=== PATIENT | male | born 1955 | race Caucasian/White ===

== ENCOUNTER → 2018-11-17 | Outpatient (CLI) | payer OTHER ==
[~2018-11-17] MED LIST: ADULT LOW DOSE81 MG PO; BENTYL10 MG PO; LIPITOR20 MG PO; OMEPRAZOLE 20 M20 MG PO; PROTONIX40 M2 PO; VITAMIN B-12100 MC1 PO; WELLBUTRIN SR150 MG PO; ZOFRAN ODT4 MG PO
== END ==
LOC: CAT 14:19
DX: Z13.6 Encounter for screening for cardiovascular disorders (principal); E78.00 Pure hypercholesterolemia, unspecified; Z72.89 Other problems related to lifestyle

== ENCOUNTER 2019-02-16 21:58 | Emergency (ER) | payer BC, OTHER ==
[~2019-02-16] VITALS: Ht 182.9 cm; Wt 95.3 kg
[2019-02-16 22:50] LABS: ANION GAP 12 mmol/L (7-16); BUN 18 mg/dL (7-18); CALCIUM 9.4 mg/dL (8.5-10.1); CHLORIDE 102 mmol/L (98-107); CO2 26 mmol/L (21-32); CREATININE 1.2 mg/dL (0.7-1.3); GLUCOSE 130 mg/dL (74-106); POTASSIUM 4.1 mmol/L (3.5-5.1); SODIUM 140 mmol/L (136-145)
[2019-02-16 22:53] LABS: ABSOLUTE NEUTROPHILS 8.6 thou/uL (1.4-8.2); BASOPHILS 0.5 % (0.0-2.0); EOSINOPHILS 0.1 % (0.0-3.0); HEMATOCRIT 45.9 % (42.0-52.0); HEMOGLOBIN 15.8 gm/dL (14.0-18.0); LYMPHOCYTES 8.3 % (24.0-44.0); MCH 30.4 pg (26.0-34.0); MCHC 34.5 g/dL (28.0-37.0); MONOCYTES 3.2 % (1.0-8.0); PLATELET COUNT 227 thou/uL (150-400); POLYS 87.9 % (36.0-66.0); RBC 5.21 mil/uL (4.50-6.00); RDW 14.3 % (10.5-14.5); WBC 9.8 thou/uL (4.0-11.0)
[2019-02-16 23:00] LABS: ALBUMIN 3.8 g/dL (3.4-5.0); MAGNESIUM 1.9 mg/dL (1.8-2.4); SGOT 17 U/L (15-37); SGPT 27 U/L (30-65); TOTAL BILIRUBIN 0.8 mg/dL (<0.1-1.0); TOTAL PROTEIN 7.2 g/dL (6.4-8.2); TROPONIN-I <0.06 ng/mL (<0.06)
[2019-02-16 23:17] LABS: URINE BILIRUBIN NEGATIVE (Negative); URINE BLOOD NEGATIVE (Negative); URINE CLARITY CLEAR; URINE COLOR YELLOW; URINE GLUCOSE-RANDOM* NEGATIVE (Negative); URINE KETONES NEGATIVE (Negative); URINE LEUKOCYTES NEGATIVE (Negative); URINE NITRITE NEGATIVE (Negative); URINE PROTEIN (DIPSTICK) NEGATIVE (Negative); URINE SPECIFIC GRAVITY 1.015 (1.005-1.035)
[2019-02-16 23:25] LABS: AMP/METHAMP Negative (Negative); BARBITURATES Negative (Negative); BENZODIAZEPINES Negative (Negative); COCAINE Negative (Negative); METHADONE Negative (Negative); OPIATES Negative (Negative); PCP Negative (Negative)
[2019-02-16] MEDS ORDERED: ATIVAN0.5 MG PO (23:35)
[2019-02-16 23:56] VITALS: BP 111/64
--- NOTE | 2019-02-17 08:04 | EKG ---
[address] [address] [place] [address] ELECTROCARDIOGRAM REPORT Name: BEN VALLE [id number] ������������������ Admission: 02/16/19 ������������������ Attend Phys: Discharge: 02/16/19 ������������������ Date of : 59 Report #: [id number] ����������������������������������������������������������������� [id number] THIS REPORT FOR: //name// [facility] ED Test Date: 2019-02-16 Test Time: 22:07:05 Pat Name: BEN VALLE Department: Room: Gender: Gleason Operator: AYESHA : 1955 Requested By: Jake García Order Number: [id number] MD: Kody Guillory Measurements Intervals [place] Rate: 88 P: 30 [place]: 128 QRS: 73 QRSD: 92 T: 60 QT: 377 QTc: 457 Interpretive Statements Sinus rhythm Nonspecific ST segment abnormality Compared to ECG 06/13/2010 23:56:[address] segment abnormality is new Electronically Signed On 02-17-2019 8:04:27 CDT by Kody Guillory [email or web address] ��������������������������������������������� <ELECTRONICALLY SIGNED> ���������������������������������������� By: Kody Guillory MD, [facility] ��������������������������������������������� 02/17/19 0804 2207 06 Kody Guillory MD, FACC /EPI
== END 2019-02-16 23:55 | disposition home or self-care (01) ==
LOC: ER 21:58
PROVIDERS: Emergency Medicine
DX: F41.9 Anxiety disorder, unspecified (principal); F43.0 Acute stress reaction; Z85.46 Personal history of malignant neoplasm of prostate; Z87.891 Personal history of nicotine dependence

== ENCOUNTER → 2021-01-24 | Outpatient (CLI) | payer BC, OTHER ==
[~2021-01-24] MED LIST changes: +ATIVAN0.5 MG PO
== END ==
LOC: SJCVCIMAG 08:24
PROVIDERS: ATTEND Internal Medicine Cardiovascular Disease
DX: K55.1 Chronic vascular disorders of intestine (principal); K55.059 Acute (reversible) ischemia of intestine, part and extent unspecified

== ENCOUNTER 2021-06-05 00:28 | Inpatient (IN) | payer BC, OTHER ==
[~2021-06-05] VITALS: Ht 182.9 cm; Wt 91.8 kg
[2021-06-05 00:30] VITALS: BP 122/69
[2021-06-05] MEDS ORDERED: TADALAFIL5 M1 PO (00:42)
[2021-06-05] MEDS ORDERED: DULOXETINE HCL30 MG PO (00:43)
[2021-06-05 00:53] LABS: ABSOLUTE NEUTROPHILS 7.9 thou/uL (1.4-8.2); BASOPHILS 0.7 % (0.0-2.0); EOSINOPHILS 0.9 % (0.0-3.0); HEMATOCRIT 46.1 % (42.0-52.0); HEMOGLOBIN 15.5 gm/dL (14.0-18.0); LYMPHOCYTES 34.9 % (24.0-44.0); MCH 30.3 pg (26.0-34.0); MCHC 33.6 g/dL (28.0-37.0); MCV 90.2 fL (80.0-100.0); MONOCYTES 6.7 % (1.0-8.0); PLATELET COUNT 272 thou/uL (150-400); POLYS 56.8 % (36.0-66.0); RBC 5.11 mil/uL (4.50-6.00); RDW 13.6 % (10.5-14.5)
[2021-06-05 01:10] LABS: ANION GAP 9 mmol/L (7-16); BUN 14 mg/dL (7-18); CALCIUM 9.8 mg/dL (8.5-10.1); CHLORIDE 97 mmol/L (98-107); CO2 26 mmol/L (21-32); CREATININE 1.2 mg/dL (0.7-1.3); GLUCOSE 497 mg/dL (74-106); SODIUM 132 mmol/L (136-145)
[2021-06-05 01:15] LABS: APTT 20.6 Seconds (24.5-32.8); INR 0.89; PROTIME 9.8 Seconds (10.5-12.1)
[2021-06-05 01:18] LABS: ALBUMIN 3.5 g/dL (3.4-5.0); DIRECT BILIRUBIN < 0.1 mg/dL (<0.1-0.2); SGOT 11 U/L (15-37); SGPT 22 U/L (16-63); TOTAL BILIRUBIN 0.2 mg/dL (0.2-1.0); TOTAL PROTEIN 6.9 g/dL (6.4-8.2); TROPONIN-I <0.06 ng/mL (<0.06)
[2021-06-05 05:17] LABS: CHOLESTEROL 169 mg/dL (<200); HDL CHOLESTEROL 34 mg/dL (>40); LDL CHOLESTEROL 91 mg/dL (<100); TRIGLYCERIDE 224 mg/dL (<150); VLDL 45 mg/dL (<40)
[2021-06-05 05:18] LABS: SERUM ASSESSMENT Clear
--- NOTE | 2021-06-05 07:49 | EKG ---
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 : 1955 Requested By: Franca Mari Order Number: [id number] MD: Chico Harvey Measurements Intervals [place] Rate: 60 P: 53 VT: 146 QRS: 36 QRSD: 95 T: -4 QT: 437 QTc: 437 Interpretive Statements Sinus rhythm Nonspecific T abnormalities, inferior leads Borderline ST elevation, lateral leads Compared to ECG 02/16/2019 22:07:05 T-wave abnormality now present ST (T wave) deviation still present Electronically Signed On 06-05-2021 7:49:15 CDT by Chico Harvey [email or web address] <ELECTRONICALLY SIGNED> By: Chico Harvey MD, [facility] 06/05/21 0749 0029 0029 Chico Harvey MD, [facility] /EPI
--- NOTE | 2021-06-05 07:49 | EKG ---
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: : 1955 Requested By: Franca Mari Order Number: [id number] MD: Chico Harvey Measurements Intervals [place] Rate: 62 P: 39 [place]: 140 QRS: 56 QRSD: 107 T: 25 QT: 451 QTc: 458 Interpretive Statements Sinus rhythm Abnormal inferior Q waves Compared to ECG 06/05/2021 00:29:29 Inferior Q waves now present Q waves now present T-wave abnormality no longer present ST (T wave) deviation no longer present Electronically Signed On 06-05-2021 7:49:19 CDT by Chico Harvey [email or web address] <ELECTRONICALLY SIGNED> By: Chico Harvey MD, [facility] 06/05/21 0749 011 011 Chico Harvey MD, [facility] /EPI
[2021-06-05 10:59] VITALS: BP 116/53
--- NOTE | 2021-06-05 12:02 | 2DMMODE ---
[facility] [place] [address] 2 D/M-MODE ECHOCARDIOGRAM Name: BEN VALLE Room #: 170-1 ADM IN M.R.#: [id number] Admission: 06/05/21 Attend Phys: eJsus Kenny MD Discharge: Date of : 59 Report #: [id number] THIS REPORT FOR: cc: Tito Miller James A. DO Lammoglia, Francisco J. MD ~ APPROVED REPORT Study performed: 06/05/2021 10:37:56 EXAM: Comprehensive 2D, Doppler, and color-flow Echocardiogram Patient Location: ER Status: routine BSA: 2.13 HR: 63 bpm BP: 138/79 mmHg Rhythm: NSR Other Information Study Quality: Good Indications Syncope Chest Pain Hx: Elevated calcium score, PVD, HLP. 2D Dimensions RVDd: 38.61 mm IVSd: 10.26 (7-11mm) LVOT Diam: 20.77 (18-24mm) LVDd: 46.23 mm PWd: 9.03 (7-11mm) LVDs: 28.93 (25-40mm) Left Atrium: 36.54 (27-40mm) Aortic Root: 36.75 mm Volumes Left Atrial Volume (Systole) Single Plane 4CH: 53.01 mL Single Plane 2CH: 54.35 mL LA ESV Index: 27.00 mL/m2 Aortic Valve AoV Peak Diego.: 1.35 m/s AO Peak Gr.: 7.32 mmHg LVOT Max P.85 mmHg [facility] [address] [place] [address] 2 D/M-MODE ECHOCARDIOGRAM Name: LEONARDRAYMUNDO Room #: 170-1 ADM IN M.R.#: [id number] Admission: 06/05/21 Attend Phys: Jesus Kenny MD Discharge: Date of : 59 Report #: [id number] LVOT Max V: 1.21 m/s HEIDY Vmax: 3.03 cm2 Mitral Valve E/A Ratio: 1.5 MV Decel. Time: 219.08 ms MV E Max Diego.: 0.93 m/s MV A Diego.: 0.63 m/s MV PHT: 63.53 ms IVRT: 62.28 ms Pulmonary Valve PV Peak Diego.: 1.08 m/s PV Peak Gr.: 4.64 mmHg Pulmonary Vein P Vein S: 0.68 m/s P Vein A: 0.31 m/s P Vein D: 0.58 m/s P Vein A Dur.: 133.8 msec P Vein S/D Ratio: 1.17 Tricuspid Valve TR Peak Diego.: 2.69 m/s RAP Estimate: 5.00 mmHg TR Peak Gr.: 29.00 mmHg PA Pressure: 34.00 mmHg Left Ventricle The left ventricle is normal size. There is normal LV segmental wall motion. There is normal left ventricular wall thickness. Left ventricular systolic function is normal. LVEF is 60%. Right Ventricle The right ventricle is normal size. The right ventricular systolic function is normal. Atria The left atrium size is normal. The right atrium size is normal. Aortic Valve The aortic valve is normal in structure. No aortic regurgitation is present. There is no aortic valvular stenosis. Mitral Valve The mitral valve is normal in structure. There is no mitral valve regurgitation noted. No evidence of mitral valve stenosis. Tricuspid Valve [facility] [address] [place] [address] 2 D/M-MODE ECHOCARDIOGRAM Name: LEONARDRAYMUNDO Room #: 170-1 ADM IN M.R.#: [id number] Admission: 06/05/21 Attend Phys: Jesus Kenny MD Discharge: Date of : 59 Report #: [id number] The tricuspid valve is normal in structure. Mild tricuspid regurgitation. Estimated PAP is 35mmHg. Pulmonic Valve The pulmonary valve is normal in structure. Trace pulmonic regurgitation. Great Vessels The aortic root is normal in size. IVC is normal in size and collapses >50% with inspiration. Pericardium There is no pericardial effusion. <Conclusion> The left ventricle is normal size. There is normal LV segmental wall motion. LVEF is 60%. LVEF is 60%. The aortic valve is normal in structure. The mitral valve is normal in structure. The tricuspid valve is normal in structure. Mild tricuspid regurgitation. Estimated PAP is 35mmHg. The pulmonary valve is normal in structure. Trace pulmonic regurgitation. The aortic root is normal in size. There is no pericardial effusion. <ELECTRONICALLY SIGNED> By: Kian Pina MD 06/05/21 1201 1201 120 Kian Pina MD /INF
[2021-06-05 14:35] VITALS: BP 123/65
[2021-06-05 14:57] VITALS: BP 146/47
[2021-06-05 15:22] LABS: URINE BILIRUBIN NEGATIVE (Negative); URINE BLOOD NEGATIVE (Negative); URINE CLARITY CLEAR; URINE COLOR YELLOW; URINE GLUCOSE-RANDOM* 3+ (Negative); URINE KETONES NEGATIVE (Negative); URINE LEUKOCYTES-REFLEX NEGATIVE (Negative); URINE NITRITE-REFLEX NEGATIVE (Negative); URINE PROTEIN (DIPSTICK) NEGATIVE (Negative); URINE SPECIFIC GRAVITY 1.025 (1.005-1.035); URINE UROBILINOGEN 0.2 E.U./dl (0.2-1.0)
[2021-06-05 19:57] VITALS: BP 132/59
[2021-06-05 23:39] VITALS: BP 121/61
[2021-06-06 03:34] LABS: HEMATOCRIT 41.9 % (42.0-52.0); HEMOGLOBIN 14.2 gm/dL (14.0-18.0); MCH 30.5 pg (26.0-34.0); MCV 89.7 fL (80.0-100.0); RBC 4.67 mil/uL (4.50-6.00); RDW 13.8 % (10.5-14.5)
[2021-06-06 03:59] LABS: CALCIUM 8.7 mg/dL (8.5-10.1); CREATININE 0.7 mg/dL (0.7-1.3); POTASSIUM 3.6 mmol/L (3.5-5.1); TOTAL BILIRUBIN 0.6 mg/dL (0.2-1.0)
[2021-06-06 04:06] LABS: GLYCOHEMOGLOBIN (HGB A1C) 12.8 % (4.8-5.6)
[2021-06-06 04:52] VITALS: BP 123/56
[2021-06-06 08:02] VITALS: BP 119/53
[2021-06-06 15:54] VITALS: BP 120/77
[2021-06-06 19:29] VITALS: BP 122/63
[2021-06-06 23:51] VITALS: BP 120/68
[2021-06-07 03:02] LABS: HEMOGLOBIN 14.5 gm/dL (14.0-18.0); MCH 30.6 pg (26.0-34.0); MCHC 34.4 g/dL (28.0-37.0); RBC 4.72 mil/uL (4.50-6.00); RDW 13.3 % (10.5-14.5); WBC 9.3 thou/uL (4.0-11.0)
[2021-06-07 03:32] LABS: ALBUMIN 2.8 g/dL (3.4-5.0); CALCIUM 8.5 mg/dL (8.5-10.1); CREATININE 0.7 mg/dL (0.7-1.3); POTASSIUM 3.8 mmol/L (3.5-5.1); TOTAL BILIRUBIN 0.8 mg/dL (0.2-1.0)
[2021-06-07 03:36] LABS: TROPONIN-I 0.64 ng/mL (<0.06)
[2021-06-07 04:05] VITALS: BP 127/62
--- NOTE | 2021-06-07 07:32 | EKG ---
[place] [address] [facility] [place] [address] ELECTROCARDIOGRAM REPORT Name: BEN VALLE Room #: 207-P ADM IN M.R.#: [id number] Admission: 06/05/21 Attend Phys: Jesus Kenny MD Discharge: Date of : 59 Report #: [id number] [facility] Test Date: 2021-06-07 Test Time: 07:26:15 Pat Name: BEN VALLE Department: Room: 207 P Gender: M Template Maker: JILLIAN : 1955 Requested By: Isha Ramos Order Number: [id number] MD: Chico Harvey Measurements Intervals [place] Rate: 61 P: 34 AR: 135 QRS: 71 QRSD: 110 T: 97 QT: 502 QTc: 506 Interpretive Statements Sinus rhythm Abnrm T, consider ischemia, anterolateral lds Prolonged QT interval Baseline wander in lead(s) V3 Compared to ECG 06/05/2021 01:12:11 Possible ischemia now present Prolonged QT interval now present Inferior Q waves no longer present Q waves no longer present Electronically Signed On 06-07-2021 7:32:00 CDT by Chico Harvey [email or web address] <ELECTRONICALLY SIGNED> By: Chico Harvey MD, [facility] 06/07/21 0732 5 5 Chico Harvey MD, [facility] /EPI
[2021-06-07] MEDS ORDERED: EFFIENT10 MG PO (07:35)
[2021-06-07] MEDS ORDERED: JARDIANCE10 MG PO (07:35)
[2021-06-07] MEDS ORDERED: COZAAR 50 MG TA50 M1 PO (07:35)
[2021-06-07] MEDS ORDERED: CRESTOR20 MG PO (07:40)
[2021-06-07 07:59] VITALS: BP 123/64
--- NOTE | 2021-06-07 10:41 | CATHLAB ---
[facility] [place] [address] INVASIVE PROCEDURE REPORT Name: BEN VALLE Room #: 207-P ADM IN M.R.#: [id number] Admission: 06/05/21 Attend Phys: Jesus Kenny MD Discharge: Date of : 59 Report #: [id number] THIS REPORT FOR: cc: Tito Miller James A. DO Mancuso, Gerald M. MD [facility] ~ APPROVED REPORT Study performed: 06/06/2021 08:27:11 Patient Details Patient Status: In-Patient Room #: 207 The patient is a 65 year-old male Event Personnel Tony Sims Gage Designer, Agustin Sheridan RN RN, Richard De La Rosa RTR Monitor, Cuong Graves RTR Scrub Procedures Performed Art Access - R femoral artery* Left Heart Cath w/or w/o Coronaries [id number] [facility] [address] Initial Mod Sed Same Phys/QHP Gr5y 267046 38000 Mod Sed Same Phys/QHP Ea 1985[address] Place w/wo Plasty Single LAD 150551 Hemostasis w/ Mynx Abdominal Aortography 787214 Indication Chest pain Procedure Narrative The Right Groin^ was infiltrated with subcutaneous anesthesia. A LAUNCHER 6FR EBU 3.75 #[id number] sheath was inserted into the RFA^. Coronary angiography was performed using coronary diagnostic catheters. The right coronary system was accessed and visualized with a JR4 catheter. The left coronary system was accessed and visualized with a JL4 catheter. The left ventricle was accessed and visualized with a PIGTAIL catheter. Left ventriculogram was performed in 30 degree projection. An aortogram of the abdominal aorta was performed. Closure device was deployed with a 6 Fr MYNXGRIP 6/7F #[id number]. Hemostasis was obtained with manual pressure following sheath removal without any complications. The patient tolerated the procedure well and there were no complications associated with the procedure. There was no hematoma. Intraoperative Conscious Sedation Sedation start time: 926 Case end Time: [facility] [address] [place] [address] INVASIVE PROCEDURE REPORT Name: BEN VALLE Room #: 207-P [facility] IN ..#: [id number] Admission: 06/05/21 Attend Phys: Jesus Kenny MD Discharge: Date of : 59 Report #: [id number] 1035 Fentanyl 100 mcg Versed 2 mg Fluoro Time: 9.60 minutes Dose: DAP 53858.30 cGycm2 2335 mGy Contrast Type and Amount: Omnipaque 265 ml Hemodynamics The aortic pressure is 153/79 mmHg with a mean of 106 mmHg. The left ventricular pressure is 128/7 mmHg with a mean of mmHg. The left ventricular end diastolic pressure is 22 mmHg. Pullback from the left ventricle to the aorta revealed a mm gradient across the aortic valve. PCI Technique Lesion Percutaneous coronary intervention was performed on the first diagnonal branch segment. A LAUNCHER 6FR EBU 3.75 #[id number] Guide Catheter was used to engage the ostium. A Luge Wire .014 x 182CM #[id number] Interventional Guidewire was used to cross the lesion. BALLOON DILATION A Balloon catheter TREK OTW 2.25 X 12 #[id number] was inserted and inflated up to 6.00atm for 13seconds. Additional Inflation: 6.00atm for 8seconds. Additional Inflation: 8.00atm for 14seconds. PCI Technique Lesion 2 Percutaneous Coronary Intervention was performed on the mid left anterior descending artery segment. A LAUNCHER 6FR EBU 3.75 #[id number] Guide Catheter was used to engage the ostium. A Luge Wire .014 x 182CM #[id number] Interventional Guidewire was used to cross the lesion. Balloon Dilation A Balloon catheter TREK OTW 2.75 X 15 #[id number] was inserted and inflated up to 3.00atm for 5seconds. Additional Inflation: 10.00atm for 22seconds. Additional Inflation: 10.00atm for 22seconds. Stent Deployment A drug-eluting stent XIENCE ROBINSON RX 3.0 X 23 #[id number] was inserted and inflated up to 18.00atm for 34seconds. Conclusion #1 Successful PTCA stent of the proximal high-grade LAD lesion placement of a 3 oh by 23 Xience drug-eluting stent postdilated to 3.2 mm DONNA grade III flow. [address] [address] INVASIVE PROCEDURE REPORT Name: CHANDLERDontaBEN Room #: 207-P [facility] IN ..#: [id number] Admission: 06/05/21 Attend Phys: Jesus Kenny MD Discharge: Date of : 59 Report #: [id number] #2 successful PTCA of the ostial diagonal branch which was jailed by the stent prior to stent placement 80% to 20% with a 2.25 balloon. #3 left main mildly disease giving rise to LAD and circumflex. #4 small ramus intermedius branch with mild disease #5 circumflex OM nondominant there is a 50 to 60% mid vessel lesion filling a large OM branch. Will follow. #6 dominant right coronary with mild proximal calcification mild irregularities no occlusive disease. #7 normal left ventricular size and systolic function EF 60%. #8 abdominal aortogram tortuosity no aneurysm formation brisk flow moderate disease in the left renal artery will evaluate noninvasively outpatient. Recommendations and plan: Continue aggressive risk factor modification. Dual antiplatelet therapy has been initiated. Transferred to CCU to follow post coronary stent protocol. Pain-free and resolution of EKG changes. <ELECTRONICALLY SIGNED> By: Tony Sims MD, [facility] 06/07/21 1041 1041 104 Tony Sims MD, FACC /INF
[2021-06-07 11:13] VITALS: BP 124/67
[2021-06-07] MEDS ORDERED: METFORMIN HCL500 M3 PO (11:25)
[2021-06-07] MEDS ORDERED: OTHER MISCELL (11:59)
[2021-06-07 13:24] VITALS: BP 124/67
[2021-06-07 13:28] VITALS: BP 124/67
== END 2021-06-07 13:55 | disposition home or self-care (01) | DRG 247 ==
LOC: ER 00:28 → 2N 03:37 → EROBS 03:37 → 2N 15:03
PROVIDERS: Emergency Medicine; Nurse Practitioner Adult Health; Nurse Practitioner Family; ADMIT Hospitalist; ATTEND Hospitalist
PROC: 5A09357 Assistance with Respiratory Ventilation, Less than 24 Consecutive Hours, Continuous Positive Airway Pressure (ICD-10-PCS; principal; 2021-06-05)
PROC: 027034Z Dilation of Coronary Artery, One Artery with Drug-eluting Intraluminal Device, Percutaneous Approach (ICD-10-PCS; 2021-06-06)
PROC: B2151ZZ Fluoroscopy of Left Heart using Low Osmolar Contrast (ICD-10-PCS; 2021-06-06)
PROC: B2111ZZ Fluoroscopy of Multiple Coronary Arteries using Low Osmolar Contrast (ICD-10-PCS; 2021-06-06)
PROC: B4101ZZ Fluoroscopy of Abdominal Aorta using Low Osmolar Contrast (ICD-10-PCS; 2021-06-06)
PROC: 4A023N7 Measurement of Cardiac Sampling and Pressure, Left Heart, Percutaneous Approach (ICD-10-PCS; 2021-06-06)
DX: I21.4 Non-ST elevation (NSTEMI) myocardial infarction (principal); K55.1 Chronic vascular disorders of intestine; I25.110 Atherosclerotic heart disease of native coronary artery with unstable angina pectoris; K21.9 Gastro-esophageal reflux disease without esophagitis; F41.9 Anxiety disorder, unspecified; E78.5 Hyperlipidemia, unspecified; D72.829 Elevated white blood cell count, unspecified; Z20.822 Contact with and (suspected) exposure to COVID-19; E11.65 Type 2 diabetes mellitus with hyperglycemia; I65.29 Occlusion and stenosis of unspecified carotid artery; F32.9 Major depressive disorder, single episode, unspecified; E78.00 Pure hypercholesterolemia, unspecified; Z83.3 Family history of diabetes mellitus; Z79.899 Other long term (current) drug therapy; Z85.46 Personal history of malignant neoplasm of prostate; Z87.891 Personal history of nicotine dependence; Z88.6 Allergy status to analgesic agent; Z82.49 Family history of ischemic heart disease and other diseases of the circulatory system; Z79.82 Long term (current) use of aspirin
CPT/HCPCS: 10081

== ENCOUNTER → 2021-06-21 | Outpatient (CLI) | payer BC, OTHER ==
[~2021-06-21] MED LIST changes: +COZAAR 50 MG TA50 M1 PO; +CRESTOR20 MG PO; +DULOXETINE HCL30 MG PO; +EFFIENT10 MG PO; +JARDIANCE10 MG PO; +METFORMIN HCL500 M3 PO; +OTHER MISCELL; +TADALAFIL5 M1 PO
== END ==
LOC: SJCVCIMAG 07:49
PROVIDERS: ATTEND Internal Medicine Cardiovascular Disease
DX: K55.1 Chronic vascular disorders of intestine (principal); I10 Essential (primary) hypertension; I70.1 Atherosclerosis of renal artery